=== PATIENT | male | born 1990 | race Caucasian/White ===

== ENCOUNTER 2020-12-27 03:30 | Emergency (ER) | payer OTHER ==
[2020-12-27 07:37] LABS: BASOPHIL 0.2 % (0-2); EOSINOPHIL 0.6 % (0-5); HCT 52.1 % (42.0-52.0); HGB 17.3 g/dl (13.2-18.0); LYMPHOCYTE 22.4 % (15-48); MCHC 33.2 g/dL (32.0-36.0); MCV 81.3 fL (78.0-100.0); MPV 9.4 fL (6.0-9.5); NEUTROPHIL 70.1 % (41-80); NRBC 0; PLT 258 K/uL (150-400); RBC 6.41 M/uL (4.70-6.00); RDW 14.2 % (11.5-14.0); WBC 8.7 K/uL (4.0-10.5)
[2020-12-27 07:38] LABS: BILIRUBIN NEGATIVE (NEGATIVE); BLOOD 2+ Ery/uL (NEGATIVE); CLARITY CLEAR (CLEAR); COLOR YELLOW (YELLOW); GLUCOSE (U) NORMAL (NORMAL); LEUKOCYTES NEGATIVE Leu/uL (NEGATIVE); NITRITE NEGATIVE (NEGATIVE); PROTEIN NEGATIVE (NEGATIVE); SPECIFIC GRAVITY 1.025 (1.001-1.030); UROBILINOGEN 0.2 mg/dL (0.2-1.0); pH 5.5 (5.0-9.0)
[2020-12-27 07:53] LABS: BACTERIA TRACE
[2020-12-27 08:00] LABS: ALBUMIN 3.9 g/dL (3.4-5.0); ALKALINE PHOSHATASE 70 U/L (46-116); ALT 45 U/L (16-63); AST 32 U/L (15-37); BILIRUBIN - TOTAL 0.4 mg/dL (0.2-1.0); BUN 9 mg/dL (7-18); BUN/CREAT RATIO (CALC) 10.7 RATIO; CHLORIDE 109 mmol/L (98-107); CO2 (BICARBONATE) 26 mmol/L (21-32); CREATININE 0.84 mg/dL (0.67-1.17); GLOBULIN (CALCULATION) 4.1 g/dL; GLUCOSE 106 mg/dL (74-106); POTASSIUM 4.1 mmol/L (3.5-5.1)
[2020-12-27 08:01] LABS: ACETAMINOPHEN (TYLENOL) < 2.0 ug/mL (10.0-30.0)
== END 2020-12-27 09:00 | disposition home or self-care (01) ==
LOC: FER 03:30
PROVIDERS: Emergency Medicine Emergency Medical Services
DX: F10.129 Alcohol abuse with intoxication, unspecified (principal); Y90.6 Blood alcohol level of 120-199 mg/100 ml
CPT/HCPCS: 36415; 36600; 70450; 71045; 72125; 80053; 81001; 82803; 84484; 85025; 87088; 93005; G0480; J2310; J7030